=== PATIENT | male | born 1970 | race Caucasian/White ===

== ENCOUNTER 2022-04-28 14:28 | Emergency (ER) | payer OTHER, SELFPAY ==
[2022-04-28 14:31] VITALS: BP 130/93; PULSE 88; RESP 20; TEMP 36.4; O2SAT 97; BMI 34.9
[2022-04-28] MEDS: KETOROLAC 30 MG/ML VIAL 15 MG IV (14:51)
[2022-04-28] MEDS: ONDANSETRON 4 MG/2 ML INJ IV (14:52)
[2022-04-28 14:55] LABS: Appearance Urine UA CLOUDY; Bilirubin Urine UA 2+ (NEGATIVE); Color Urine UA BROWN; Glucose Urine UA TRACE g/dL (Negative); Ketones Urine UA 1+ (NEGATIVE); Leukocyte Esterase Urine UA TRACE (NEGATIVE); Nitrite Urine UA NEGATIVE (Negative); Occult Blood Urine UA 3+ (Negative); Protein Urine UA 3+ (Negative); Specific Gravity Urine UA >=1.030 (1.000-1.035); Urobilinogen Urine UA 0.2 E.U./dL (0.2)
[2022-04-28 14:59] LABS: Add Manual Diff / Slide Review NO; Basophils Absolute Auto 0 /uL (0-100); Basophils Percent Auto 0.5 % (0-2); Eosinophils Absolute Auto 100 /uL (0-450); Eosinophils Percent Auto 1.1 % (2-4); Hematocrit 49.4 % (41-53); Lymphocytes Absolute Auto 900 /uL (1100-4500); Mean Corpuscular HGB Conc 34.4 % (30-36); Mean Corpuscular Hemoglobin 31.3 PG (26-34); Mean Corpuscular Volume 90.8 fL (80-100); Monocytes Absolute Auto 400 /uL (0-900); Monocytes Percent Auto 8.5 % (3-14); Neutrophils Absolute Auto 3300 /uL (1500-7000); Neutrophils Percent Auto 70.9 % (50-75); Platelet Count 151 X10^3/uL (150-400); Red Blood Cell Count 5.44 X10^6/uL (4.5-5.9); Red Cell Distribution Width 13.6 % (11.6-14.8); White Blood Cell Count 4.6 X10^3/uL (4.5-11.0)
[2022-04-28 15:04] LABS: Alanine Aminotransferase 33 IU/L (<50); Albumin 4.7 g/dL (3.5-5.0); Albumin Globulin Ratio 1.2 (1.0-2.8); Alkaline Phosphatase 60 U/L (38-126); Aspartate Aminotransferase 36 IU/L (17-59); BUN Creatinine Ratio 13.3 (6-22); Bilirubin Total 0.8 mg/dL (0.2-1.3); Blood Urea Nitrogen 10 mg/dL (9-20); Calcium 8.9 mg/dL (8.4-10.2); Carbon Dioxide 22 mmol/L (22-32); Chloride 106 mmol/L (98-107); Estimated Glomerular Filt Rate > 60 mL/min (>60); Globulin 3.9 g/dL (1.7-4.1); Glucose 116 mg/dL (70-100); HEMOLYSIS 21 (0-50); Potassium 3.7 mmol/L (3.4-5.1); Sodium 140 mmol/L (137-145); Total Protein 8.6 g/dL (6.3-8.2)
[2022-04-28 15:06] LABS: Bacteria Urine None Seen; RBC Urine 30-100/HPF (0-5/HPF); WBC Urine 1-5/HPF (0-5/HPF)
[2022-04-28 15:07] LABS: Mucus Urine 4+ (Negative)
[2022-04-28 15:09] LABS: Culture Indicated Urine Cult Not Indicated; Ictotest Urine Negative (Negative)
--- NOTE | 2022-04-28 16:44 | DI.CT.S_ITS ---
PROCEDURE: CT KIDNEY URETER BLADDER (KUB) INDICATIONS: ? kidney stone, hx of ureteral stents TECHNIQUE: Axial sections were acquired from the lung bases to the pubic symphysis. Coronal and sagittal reformats were performed. For radiation dose reduction, the following was used: automated exposure control, adjustment of mA and/or kV according to patient size. COMPARISON: None. FINDINGS: Image quality: Excellent. Lung bases: Unremarkable. Heart: No significant findings. URINARY: Right Kidney: No stones or hydronephrosis. Simple appearing cyst in midpole of right kidney is seen measures 4.4 x 3.8 cm in size series 2, image 38. Right Ureter: No hydroureter. Left Kidney: There is mild left-sided hydronephrosis. 2 mm nonobstructing stone is seen in midpole of left kidney. Left Ureter: 5 mm stone is noted at left UVJ and measures 441 Hounsfield unit in density. More distal left ureter is normal in size. Bladder: Normal wall thickness. No stones. Enlarged prostate gland with mild mass effect on floor of urinary bladder is seen. ABDOMEN: Liver: Unremarkable. Gallbladder: Calcified stone in dependent portion of gallbladder lumen is seen. No gallbladder wall thickening or pericholecystic fluid. Biliary ducts: Unremarkable. Pancreas: Unremarkable. Spleen: Unremarkable. Adrenal Glands: Unremarkable. Stomach and Bowel: There is a small hiatal hernia. No bowel obstruction or abnormal bowel wall thickening. No mesenteric fat stranding. No abscess collection. Peritoneum: No abnormal intraperitoneal fluid. No free air. Ventral Wall: No hernia. Abdominal Nodes: No enlarged retroperitoneal or mesenteric lymph nodes. Vessels: Aorta and inferior vena cava are normal in size. PELVIS: Pelvic Organs: Unremarkable. Pelvic Nodes: Unremarkable. Miscellaneous: No inguinal hernias are seen. Bones: There is prior left total hip arthroplasty with susceptibility artifacts. No acute vertebral body compression fracture. No suspicious bony lesions. IMPRESSION: 1. 5 mm left UPJ stone with mild left-sided hydronephrosis as described above. This stone measures 441 Hounsfield unit in density. Additional nonobstructing stone also seen in left kidney. Right renal cyst as above. No right-sided hydronephrosis or hydroureter. Normal appearing urinary bladder. 2. No bowel obstruction or abnormal bowel wall thickening. No free fluid or free air. Small hiatal hernia. 3. Cholelithiasis without CT evidence of acute cholecystitis. Dictated by: Lio Gomez M.D. on 04/28/2022 at 17:04 Approved by: Lio Gomez M.D. on 04/28/2022 at 17:07
--- NOTE | 2022-04-28 17:21 | ED_ITS ---
HPI - Male Genitourinary General Chief complaint: Urogenital-Male Stated complaint: kidney stones severe back pain lt back Time Seen by Provider: 04/28/22 14:48 Source: patient Mode of arrival: Ambulatory Limitations: no limitations History of Present Illness HPI Narrative: This is a 51 old male history of kidney stones prior ureteral stents and lithotripsy who states he had viral-like illness with cough cold congestion fevers last week he was improving and then yesterday was shoveling his sister's driveway and then started developing increasing left flank pain which was quite severe and similar to his prior kidney stones. Patient denies any fevers in the last few days. He had nausea and vomiting earlier today. Left flank pain, he noticed hematuria but no dysuria, urgency or frequency. No difficulty with urination. Patient denies any diarrhea constipation. He actually was in contact with his primary care physician was seen they sent a prescription for tramadol and Zofran to the pharmacy but he was having significant pain in the pharmacy was closed over the lunch hour and was not going to open for 2 more hours he could not stop vomiting so he presented to the ER. Patient denies other surgeries, he states no known drug allergies. He denies any other daily medications. He has seen urology in the past but not for quite some time he was told by his physician he is having persistent symptoms they will refer him after this weekend. Patient had Toradol in the department prior to my evaluation and is now /10, states he was a 10/10 earlier. He states he feels much and would like to be discharged home. He states that his tramadol and Zofran has been already picked up. He is not currently on tamsulosin. Related Data Previous Rx's Medication Instructions Recorded tamsulosin 0.4 mg capsule (Flomax) 0.4 mg PO DAILY #7 caps 04/28/22 Allergies Allergy/AdvReac Type Severity Reaction Status Date / Time No Known Drug Allergies Allergy Verified 04/28/22 14:31 Review of Systems Review of Systems ROS Unobtainable: All systems reviewed & are unremarkable except as noted in HPI and below Patient History Social History Smoking Status: Never smoker Smoking Status: Never smoker alcohol intake frequency: holidays/special occasions only Substance Use Type: marijuana Exam Narrative Exam Narrative: GENERAL: Alert and oriented x three, male in mild distress. HEENT: Head normocephalic, atraumatic, EOMI, pupils reactive, face symmetric, moist mucous membranes NECK: Supple, full range of motion CARDIOVASCULAR: Regular rate and rhythm without murmurs, rubs or gallops. RESPIRATORY: Breath sounds equal bilaterally, no wheezes rales or rhonchi. ABDOMEN: Soft, nontender. Normoactive bowel sounds all 4 quadrants. No guarding or rebound, rigidity, no mass : No CVA tenderness EXTREMITIES: Normal range of motion, no clubbing or edema. Neurovascularly intact NEUROLOGICAL: Cranial nerves II through XII grossly intact. Moving all extremities SKIN: Warm, dry, no petechiae, no rashes or lesions. Initial Vital Signs Initial Vital Signs: Vital Signs Temperature 97.6 F 04/28/22 14:31 Pulse Rate 88 04/28/22 14:31 Respiratory Rate 20 04/28/22 14:31 Blood Pressure 130/93 H 04/28/22 14:31 Pulse Oximetry 97 04/28/22 14:31 Oxygen Delivery Method 04/28/22 14:31 Course Orders Ordered: Discontinued Medications Ketorolac Tromethamine (Ketorolac 30 Mg/Ml Vial) 15 mg IV NOW ONE Stop: 04/28/22 14:49 Last Admin: 04/28/22 14:51 Dose: 15 mg Documented By: RB Ondansetron HCl (Ondansetron 4 Mg/2 Ml Inj) 4 mg IV NOW ONE Stop: 04/28/22 14:49 Last Admin: 04/28/22 14:52 Dose: 4 mg Documented By: RB Tamsulosin HCl (Tamsulosin 0.4 Mg Capsule) 0.4 mg PO NOW ONE Stop: 04/28/22 17:36 Last Admin: 04/28/22 17:58 Dose: 0.4 mg Documented By: RB Vital Signs Vital signs: Vital Signs - 8 hr 04/28/22 14:31 Temperature 97.6 F Pulse Rate 88 Respiratory Rate 20 Blood Pressure 130/93 H Pulse Oximetry 97 Oxygen Delivery Method Room Air MDM - Male Genitourinary Lab Data Result diagrams: 04/28/22 14:35 04/28/22 14:35 Labs: Lab Results 04/28/22 04/28/22 04/28/22 Range/Units 14:35 14:35 14:35 WBC 4.6 (4.5-11.0) X10^3/uL RBC 5.44 (4.5-5.9) X10^6/uL Hgb 17.0 (13.5-17.5) g/dL Hct 49.4 (41-53) % MCV 90.8 (80-100) fL MCH 31.3 (26-34) PG MCHC 34.4 (30-36) % RDW 13.6 (11.6-14.8) % Plt Count 151 (150-400) X10^3/uL Neut % (Auto) 70.9 (50-75) % Lymph % (Auto) 19.0 L (25-40) % [place] % (Auto) 8.5 (3-14) % Eos % (Auto) 1.1 L (2-4) % Baso % (Auto) 0.5 (0-2) % Neut # (Auto) 3300 (0708-4602) /uL Lymph # (Auto) 900 L (8695-0974) /uL [place] # (Auto) 400 (0-900) /uL Eos # (Auto) 100 (0-450) /uL Baso # (Auto) 0 (0-100) /uL Sodium 140 (137-145) mmol/L Potassium 3.7 (3.4-5.1) mmol/L Chloride 106 (98-107) mmol/L Carbon Dioxide 22 (22-32) mmol/L BUN 10 (9-20) mg/dL Creatinine 0.75 (0.66-1.25) mg/dL Estimated GFR > 60 (>60) mL/min BUN/Creatinine Ratio 13.3 (6-22) Glucose 116 H (70-100) mg/dL Calcium 8.9 (8.4-10.2) mg/dL Total Bilirubin 0.8 (0.2-1.3) mg/dL AST 36 (17-59) IU/L ALT 33 (<50) IU/L Alkaline Phosphatase 60 (38-126) U/L Total Protein 8.6 H (6.3-8.2) g/dL Albumin 4.7 (3.5-5.0) g/dL Globulin 3.9 (1.7-4.1) g/dL Albumin/Globulin Ratio 1.2 (1.0-2.8) Urine Color Brown Urine Appearance Cloudy Urine pH 5.0 (4.5-8.0) Ur Specific [place] >=1.030 H (1.000-1.035) Urine Protein 3+ H (Negative) Urine Glucose (UA) Trace H (Negative) g/dL Urine Ketones 1+ H (NEGATIVE) Urine Occult Blood 3+ H (Negative) Urine Nitrate Negative (Negative) Urine Bilirubin 2+ H (NEGATIVE) Ur Bilirubin Confirm Negative (Negative) Urine Urobilinogen 0.2 (0.2) E.U./dL Ur Leukocyte Esterase Trace H (NEGATIVE) Urine RBC 30-100/hpf H (0-5/HPF) Urine WBC 1-5/hpf (0-5/HPF) Urine Bacteria None seen (None) Urine Mucus 4+ H (Negative) Ur Culture Indicated? Cult not indicated Imaging Data CT scan - abdomen/pelvis: Radiologist's Impression: [address] [address] [address] Scan Report Signed Patient: Huy Walters MR#: [id number] : 1970 Acct:[id number] Age/Sex: 51 / M Date of Service: 04/28/22 Loc: ED Accession Number: [id number] ?? Procedure: CT kidney ureter bladder (KUB) Ordering Provider: Brenna Branham D.O. PROCEDURE:? CT KIDNEY URETER BLADDER (KUB) ? INDICATIONS:? ? kidney stone, hx of ureteral stents ? TECHNIQUE:? Axial sections were acquired from the lung bases to the pubic symphysis.? Coronal and sagittal reformats were performed.? For radiation dose reduction, the following was used: ?automated exposure control, adjustment of mA and/or kV according to patient size.? ? COMPARISON:? None. ? FINDINGS:? Image quality:? Excellent.? ? Lung bases:? Unremarkable.? ? Heart:? No significant findings. ? URINARY: Right Kidney:? No stones or hydronephrosis.? Simple appearing cyst in midpole of right kidney is seen measures 4.4 x 3.8 cm in size series 2, image 38. Right Ureter:? No hydroureter. ? Left Kidney:? There is mild left-sided hydronephrosis.? 2 mm nonobstructing stone is seen in midpole of left kidney. Left Ureter:? 5 mm stone is noted at left UVJ and measures 441 Hounsfield unit in density.? More distal left ureter is normal in size. ? Bladder:? Normal wall thickness. No stones. ? ? Enlarged prostate gland with mild mass effect on floor of urinary bladder is seen. ? ABDOMEN: Liver:? Unremarkable.? ? Gallbladder:? Calcified stone in dependent portion of gallbladder lumen is se en.? No gallbladder wall thickening or pericholecystic fluid. Biliary ducts:? Unremarkable.? ? Pancreas:? Unremarkable.? ? Spleen:? Unremarkable.? ? Adrenal Glands:? Unremarkable.? ? ? Stomach and Bowel:? There is a small hiatal hernia.? No bowel obstruction or abnormal bowel wall thickening.? No mesenteric fat stranding.? No abscess collection. Peritoneum:? No abnormal intraperitoneal fluid.? No free air.? ? Ventral Wall: ? No hernia.? Abdominal Nodes:? No enlarged retroperitoneal or mesenteric lymph nodes.? Vessels:? Aorta and inferior vena cava are normal in size.? ? PELVIS: Pelvic Organs:? Unremarkable.? ? Pelvic Nodes: Unremarkable. Miscellaneous: No inguinal hernias are seen. ? ? ? Bones:? There is prior left total hip arthroplasty with susceptibility artifacts.? No acute vertebral body compression fracture.? No suspicious bony lesions. ? IMPRESSION:? ? 1. 5 mm left UPJ stone with mild left-sided hydronephrosis as described above.? This stone measures 441 Hounsfield unit in density.? Additional nonobstructing stone also seen in left kidney.? Right renal cyst as above.? No right-sided hydronephrosis or hydroureter.? Normal appearing urinary bladder. ? 2. No bowel obstruction or abnormal bowel wall thickening.? No free fluid or free air.? Small hiatal hernia. ? 3. Cholelithiasis without CT evidence of acute cholecystitis. ? ? Dictated by: Lio Gomez M.D. on 04/28/2022 at 17:04 ? ? Approved by: Lio Gomez M.D. on 04/28/2022 at 17:07?? MDM Narrative Medical decision making narrative: This is a 51-year-old male with history of kidney stones who has acute onset of increasing flank pain for the last day he did see his primary care physician had prescriptions for Zofran and tramadol sent but started vomiting and was not able to pick them up. Patient feels much better after Toradol, renal functions normal, with no leukocytosis or bandemia, CBC CMP do not show other lab changes patient has 3+ blood, nitrate negative, trace leuks, 30-100 RBCs with 1-5 WBCs and no bacteria. Urine was sent for culture. CT KUB shows a 5 mm stone with [id number] hydro, patient's pain has been controlled, will start Flomax he is not on tamsulosin given 1st dose here. He states pain meds available at home as well as antinausea medication he feels much better and would like to be discharged. He was given a referral to follow up with Urology and we discussed return precautions. Discharge Plan Departure Patient Disposition: Home Clinical Impression: Kidney stone on left side, Gallstone Instructions: DI for Kidney Stones Activity Restrictions/Additional Instructions: You have a 5 mm stone on the left as well as a small kidney stone higher up in the kidney itself on the left side. You do have gallstones noted on your CT imaging today Referral for Urology has included if you are having persistent symptoms into next week. Take Flomax once daily until gone. Take the tramadol prescribed by your physician for pain. You can take Tylenol up to a 1000 mg with this medication and/or ibuprofen up to 600 mg every 6 hours. You can take all 3 of these medications together if needed. Your physician also prescribed Zofran and antinausea medication you can take 1 tablet every 6 hours as needed. Prescription for Flomax into [facility] in [place]. Please return for fevers, intractable abdominal, back or flank pain, persistent vomiting, inability to urinate, black or bloody stools or other new or concerning changes. Prescriptions: New tamsulosin [Flomax] 0.4 mg capsule 0.4 mg PO DAILY Qty: 7 0RF Referrals: Ramon Padilla MD [Physician] - Visit Report Forms: Patient Portal/API
[2022-04-28] MEDS: TAMSULOSIN 0.4 MG CAPSULE PO (17:58)
[2022-04-28 18:10] VITALS: BP 132/82; PULSE 80; RESP 16; O2SAT 98
== END 2022-04-28 18:00 | disposition home or self-care (01) ==
PROVIDERS: Emergency Provider Emergency Medicine
DX: N20.0 Calculus of kidney (principal); K80.20 Calculus of gallbladder without cholecystitis without obstruction; R11.2 Nausea with vomiting, unspecified; R31.9 Hematuria, unspecified
CPT/HCPCS: 36415; 74176; 80053; 81001; 85025; 87086; 96374; 96375; 99284; J1885; J2405

== ENCOUNTER 2023-10-17 08:22 | Emergency (ER) | payer OTHER, SELFPAY ==
[2023-10-17 08:31] VITALS: BP 147/79; PULSE 77; RESP 16; TEMP 36.6; O2SAT 97; BMI 36.5
--- NOTE | 2023-10-17 08:32 | DI.RAD.S_ITS ---
PROCEDURE: XR CHEST 1V INDICATIONS: chest pain TECHNIQUE: One view of the chest was acquired. COMPARISON: None. FINDINGS: Surgical changes and devices: None. Lungs and pleura: Lungs are clear. No pleural effusions or pneumothorax. Mediastinum: Mediastinal contours appear normal. Heart size is normal. Bones and chest wall: No suspicious bony lesions. Subacute to chronic appearing right posterior lateral 5th through 8th rib fractures are seen. Overlying soft tissues appear unremarkable. IMPRESSION: No acute cardiopulmonary pathology. Subacute to chronic appearing right posterior lateral rib fractures as above. Dictated by: Lio Gomez M.D. on 10/17/2023 at 8:54 Approved by: Lio Gomez M.D. on 10/17/2023 at 8:56
[2023-10-17 08:40] LABS: Add Manual Diff / Slide Review NO; Basophils Absolute Auto 100 /uL (0-100); Basophils Percent Auto 1.2 % (0-2); Eosinophils Absolute Auto 400 /uL (0-450); Eosinophils Percent Auto 8.1 % (2-4); Hematocrit 46.4 % (41-53); Hemoglobin 16.4 g/dL (13.5-17.5); Lymphocytes Absolute Auto 1600 /uL (1100-4500); Lymphocytes Percent Auto 30.8 % (25-40); Mean Corpuscular HGB Conc 35.4 % (30-36); Mean Corpuscular Volume 90.6 fL (80-100); Monocytes Absolute Auto 700 /uL (0-900); Monocytes Percent Auto 13.1 % (3-14); Neutrophils Absolute Auto 2400 /uL (1500-7000); Neutrophils Percent Auto 46.8 % (50-75); Platelet Count 193 X10^3/uL (150-400); Red Blood Cell Count 5.13 X10^6/uL (4.5-5.9); Red Cell Distribution Width 14.2 % (11.6-14.8); White Blood Cell Count 5.2 X10^3/uL (4.5-11.0)
[2023-10-17 08:49] LABS: Prothrombin Time 11.2 SECONDS (9.4-12.5)
[2023-10-17 08:51] LABS: PTT Partial Thromboplastin Tim 37 SECONDS (25.1-36.5)
[2023-10-17] MEDS: ASPIRIN 81 MG CHEW TAB 324 MG PO (08:52)
[2023-10-17 08:53] LABS: Alanine Aminotransferase 40 IU/L (<50); Albumin 4.5 g/dL (3.5-5.0); Albumin Globulin Ratio 1.6 (1.0-2.8); Alkaline Phosphatase 65 U/L (38-126); Aspartate Aminotransferase 37 IU/L (17-59); BUN Creatinine Ratio 16.9 (6-22); Bilirubin Total 0.7 mg/dL (0.2-1.3); Blood Urea Nitrogen 15 mg/dL (9-20); Calcium 9.2 mg/dL (8.4-10.2); Carbon Dioxide 23 mmol/L (22-32); Chloride 109 mmol/L (98-107); Creatine Kinase 156 U/L (55-170); Estimated Glomerular Filt Rate > 60 mL/min (>60); Globulin 2.8 g/dL (1.7-4.1); Glucose 113 mg/dL (70-100); HEMOLYSIS < 15 (0-50); Lipase 186 U/L (23-300); Potassium 4.1 mmol/L (3.4-5.1); Sodium 139 mmol/L (137-145); Total Protein 7.3 g/dL (6.3-8.2)
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
[2023-10-17 09:05] LABS: Troponin I < 0.012 ng/mL (0.01-0.034)
[2023-10-17 09:17] VITALS: BP 129/75; PULSE 74
[2023-10-17] MEDS: NITROGLYCERIN 0.4 MG SL TAB SL ×2 (09:17→09:35)
[2023-10-17 09:35] VITALS: BP 126/60; PULSE 77
--- NOTE | 2023-10-17 09:52 | PC.NURSE ---
Patient reports that he has no chest pain after 2 nitroglcerin.
[2023-10-17 10:58] LABS: Troponin I < 0.012 ng/mL (0.01-0.034)
--- NOTE | 2023-10-17 11:45 | PC.NURSE ---
All the vitals for this patient are printed out and stickered and placed in medical record.
== END 2023-10-17 11:47 | disposition home or self-care (01) ==
PROVIDERS: Emergency Provider Emergency Medicine
DX: R07.9 Chest pain, unspecified (principal)
CPT/HCPCS: 36415; 71045; 80053; 82550; 83690; 83735; 84484; 85025; 85610; 85730; 93005; 93010; 99284

== ENCOUNTER → 2024-06-28 14:50 | Outpatient (CLI) | payer OTHER, SELFPAY ==
[2024-06-28 15:48] LABS: Influenza A - CEPHEID Flu A NEGATIVE (NEGATIVE); Influenza B - CEPHEID Flu B NEGATIVE (NEGATIVE); Respiratory Syncytial Virus Negative (Negative)
[2024-06-28 16:07] LABS: COVID-19 CEPHEID 4-PLEX PCR Negative (Negative)
== END ==
PROVIDERS: Visit Provider Nurse Practitioner Family
DX: R05.1 Acute cough (principal)
CPT/HCPCS: 0241U

== ENCOUNTER → 2024-06-28 15:07 | Outpatient (CLI) | payer OTHER, SELFPAY ==
--- NOTE | 2024-06-28 15:09 | DI.RAD.S_ITS ---
PROCEDURE: XR CHEST 2V INDICATIONS: Cough TECHNIQUE: 2 views of the chest were acquired. COMPARISON: [facility], [place], XR CHEST 1V, 10/17/2023, 8:39. FINDINGS: Surgical changes and devices: None. Lungs and pleura: Lungs are clear considering reduced inspiratory volume and relatively light film technique. No pleural effusions or pneumothorax. Mediastinum: Mediastinal contours are normal. Heart size is normal. Bones and chest wall: No suspicious bony abnormalities. Old right-sided posterolateral mid chest rib fractures again noted. Soft tissues appear unremarkable. IMPRESSION: No acute disease, old right-sided rib fractures. Reduced inspiration, mild chronic interstitial prominence, no pneumonia. Dictated by: Drake Nascimento M.D. on 06/28/2024 at 15:44 Approved by: Drake Nascimento M.D. on 06/28/2024 at 15:45
== END ==
LOC: RAD 15:09
PROVIDERS: Referring Provider Nurse Practitioner Family; Visit Provider Nurse Practitioner Family
DX: R05.1 Acute cough (principal)
CPT/HCPCS: 0241U; 71046